=== PATIENT | female | born 1970 | race Caucasian/White ===

== ENCOUNTER 2016-11-23 07:51 | Day surgery (SDC) | payer BC ==
[~2016-11-23] VITALS: Ht 172.7 cm; Wt 117.9 kg
[~2016-11-23 07:51] MED LIST: ALEVE220 M1 PO; AZELASTINE0.1 %; AZURETTE PO; BACTRIM DS1 TAB PO; BIOTIN MAXI10000 MCG PO; BREO ELLIPTA 101 INH; CIPROFLOXACN500 MG PO; FLEXERIL5 M1 PO; FLONASE NASAL50 MCG; FLOVENT HFA110 MCG IN; LAMICTAL200 MG PO; LEVAQUIN500 MG PO; LEVOTHYROXIN150 MC1 PO; LORAZEPAM; MONTELUKAST SOD10 MG PO; NAPRELAN500 MG PO; PREDNISONE20 MG PO; PROAIR HFA IN; SILVADENE1 % TOP; SUMATRIPTAN SUC50 MG PO; SYNTHROID175 MCG PO; VITAMIN D2; WELLBUTRIN X1 PO; WELLBUTRIN150 M2 PO; ZESTRIL5 M1 PO; ZITHROMAX250 MG PO
[2016-11-23] MEDS ORDERED: VITAMIN D35000 UNI1 PO (08:20)
[2016-11-23 12:13] VITALS: BP 102/55
== END 2016-11-23 11:15 | disposition home or self-care (01) | DRG 394 ==
LOC: ENDO 07:51 → ORM 11:45
PROVIDERS: ATTEND Surgery
PROC: 0DJD8ZZ Inspection of Lower Intestinal Tract, Via Natural or Artificial Opening Endoscopic (ICD-10-PCS; principal; 2016-11-23)
DX: K64.1 Second degree hemorrhoids (principal); K62.5 Hemorrhage of anus and rectum; Q24.8 Other specified congenital malformations of heart; F33.8 Other recurrent depressive disorders; Z01.818 Encounter for other preprocedural examination; Z86.14 Personal history of Methicillin resistant Staphylococcus aureus infection; J45.909 Unspecified asthma, uncomplicated; E03.9 Hypothyroidism, unspecified; I10 Essential (primary) hypertension; Z72.89 Other problems related to lifestyle

== ENCOUNTER 2017-06-19 09:14 | Emergency (ER) | payer BC ==
[~2017-06-19] VITALS: Ht 172.7 cm; Wt 120.0 kg
[~2017-06-19 09:14] MED LIST changes: +VITAMIN D35000 UNI1 PO
[2017-06-19] MEDS ORDERED: DELTASONE20 MG PO (09:54)
[2017-06-19 10:05] VITALS: BP 138/77
== END 2017-06-19 10:05 | disposition home or self-care (01) | DRG 607 ==
LOC: ED 09:14
DX: L27.1 Localized skin eruption due to drugs and medicaments taken internally (principal); T36.8X5A Adverse effect of other systemic antibiotics, initial encounter; E03.9 Hypothyroidism, unspecified; F32.9 Major depressive disorder, single episode, unspecified; J45.909 Unspecified asthma, uncomplicated

== ENCOUNTER 2018-06-30 02:53 | Emergency (ER) | payer OTHER, BC ==
[~2018-06-30] VITALS: Ht 172.7 cm; Wt 114.0 kg
[~2018-06-30 02:53] MED LIST changes: +DELTASONE20 MG PO
[2018-06-30 04:09] VITALS: BP 145/96
== END 2018-06-30 04:15 | disposition home or self-care (01) | DRG 563 ==
LOC: ED 02:53
DX: S86.911A Strain of unspecified muscle(s) and tendon(s) at lower leg level, right leg, initial encounter (principal); S80.01XA Contusion of right knee, initial encounter; S50.311A Abrasion of right elbow, initial encounter; S60.416A Abrasion of right little finger, initial encounter; E03.9 Hypothyroidism, unspecified; W01.0XXA Fall on same level from slipping, tripping and stumbling without subsequent striking against object, initial encounter; Y92.219 Unspecified school as the place of occurrence of the external cause; Y99.0 Civilian activity done for income or pay

== ENCOUNTER 2020-05-26 11:10 | Emergency (ER) | payer BC ==
[~2020-05-26] VITALS: Ht 172.7 cm; Wt 115.9 kg
[2020-05-26 12:17] LABS: HEMATOCRIT 39.2 % (37.0-47.0); HEMOGLOBIN 12.6 g/dl (12.0-16.0); IMMATURE GRANULOCYTES 0.8 % (0.0-5.0); MEAN CELL VOLUME 86.5 fL CALC (80.0-100.0); MEAN CORPUSCULAR HGB 27.8 pG CALC (26.0-32.0); MEAN CORPUSCULAR HGB CONC 32.1 g/dL CAL (32.0-36.0); NEUT# 3.17 thou/uL (2.00-7.15); RED BLOOD COUNT 4.53 mill/uL (4.20-5.60); RED CELL DISTRI WIDTH 13.3 % (11.5-15.5)
[2020-05-26 12:23] LABS: ALBUMIN 3.9 g/dL (3.2-5.0); ALKALINE PHOSPHATASE 77 u/l (38-126); ANION GAP 12 (6-22 (CALC)); BILIRUBIN, TOTAL 0.7 mg/dL (0.0-1.4); BUN 7 mg/dL (7-17); BUN/CREATININE RATIO 13 (12-20 (CALC)); CARBON DIOXIDE 28 mmol/l (22-30); CHLORIDE 101 mmol/l (95-108); CREATININE 0.5 mg/dL (0.5-1.0); GFR > 60 ML/MIN (>=60 (CALC)); GFR FOR AFR.AMER. > 60 ML/MIN (>=60 (CALC)); POTASSIUM 3.7 mmol/l (3.5-5.1); SGOT/AST 42 u/l (14-36); SODIUM 137 mmol/l (137-146); TOTAL PROTEIN 7.2 g/dL (6.3-8.2)
[2020-05-26 12:35] LABS: MYOGLOBIN 92 ng/mL (0 - 62)
[2020-05-26] MEDS ORDERED: MIRALAX17 GM PO (14:13)
[2020-05-26] MEDS ORDERED: ZPAK PO (14:13)
[2020-05-26 14:18] VITALS: BP 136/78
== END 2020-05-26 14:28 | disposition home or self-care (01) | DRG 179 ==
LOC: ED 11:10
PROVIDERS: Emergency Medicine
DX: U07.1 COVID-19 (principal); K59.00 Constipation, unspecified; F41.9 Anxiety disorder, unspecified; J45.909 Unspecified asthma, uncomplicated; E03.9 Hypothyroidism, unspecified; F31.9 Bipolar disorder, unspecified

== ENCOUNTER 2023-12-13 11:06 | Observation (INO) | payer BC ==
[2023-12-13] VITALS (8 sets, daily range): BP systolic 111–145; BP diastolic 44–75
[~2023-12-13] VITALS: Ht 172.7 cm; Wt 97.8 kg
[~2023-12-13 11:06] MED LIST changes: +MIRALAX17 GM PO; +ZPAK PO
--- NOTE | 2023-12-13 11:15 | NUR ---
PT TO ROOM WITH STEADY GAIT
[2023-12-13 11:30] LABS: BASO% 0.2 % (0-3); EOS% 2.3 % (0-8); HEMATOCRIT 42.9 % (37.0-47.0); HEMOGLOBIN 14.3 g/dl (12.0-16.0); IMMATURE GRANULOCYTES 0.1 % (0.0-5.0); LYMPH% 18.5 % (15-41); MEAN CELL VOLUME 88.8 fL CALC (80.0-100.0); MEAN CORPUSCULAR HGB 29.6 pG CALC (26.0-32.0); MEAN CORPUSCULAR HGB CONC 33.3 g/dL CAL (32.0-36.0); NEUT# 6.48 thou/uL (2.00-7.15); NEUT% 71.9 % (42-76); RED BLOOD COUNT 4.83 mill/uL (4.20-5.60); RED CELL DISTRI WIDTH 13.7 % (11.5-15.5)
[2023-12-13 11:43] LABS: ALBUMIN 4.2 g/dL (3.2-5.0); BILIRUBIN, TOTAL 0.5 mg/dL (0.02-1.3); CREATININE 0.7 mg/dL (0.5-1.0); POTASSIUM 3.9 mmol/l (3.5-5.1); TOTAL PROTEIN 7.1 g/dL (6.3-8.2)
--- NOTE | 2023-12-13 13:14 | NUR ---
PATIENT AWAKE, ALERT AND STABLE. NO DISTRESS NOTED. FAMILY AT BEDSIDE. WILL CONTINUE TO MONITOR.
--- NOTE | 2023-12-13 14:00 | NUR ---
PATIENT AWAKE,ALERT AND STABLE. NO DISTRESS NOTED. PATIENT LAYING IN BED RESTING WITH AT BEDSIDE. VITALS WNL. WILL CONTINUE TO MONITOR.
[2023-12-13] MEDS ORDERED: SODIUM CHLORIDE 0.9% 1,000 ML IV ONE (15:00)
[2023-12-13] MEDS ORDERED: SODIUM CHLORIDE 0.9% 1,000 ML IV PRN (15:35)
[2023-12-13] MEDS ORDERED: MAGNESIUM HYDROXIDE 30 ML UDC PO PRN (15:35)
[2023-12-13] MEDS ORDERED: LEVOTHYROXIN125 MCG PO (15:35)
[2023-12-13] MEDS ORDERED: ACETAMINOPHEN 325 MG/TAB PO PRN (15:35)
[2023-12-13] MEDS ORDERED: ONDANSETRON HCl 4 MG/2 ML SDV IV PRN (15:35)
--- NOTE | 2023-12-13 18:37 | NUR ---
PT ARRIVED TO THE UNIT AOX4, WALKED TO THE BED INDEPENDENTLY, RESPIRATIONS ARE EVEN AND UNLABORED, LUNGS ARE CLEAR, BOWEL SOUNDS ARE HYPOACTIVE ON THE LEFT UPPER QUAD, AND ACTIVE IN THE LEFT LOWER AND RIGHT UPPER AND LOWER, PEDAL PULSES PALPABLE TO TOUCH.
--- NOTE | 2023-12-13 20:00 | NUR ---
RECEIVED REPORT FROM NURSE SAMAN, PATIENT RESTING IN BED, IN ROOM, PATINET ALERT ORIENTED AMBULATORY, DENIES PAIN AT THIS TIME, BUR SOMETIMES OCASSIONAL ABDOMINAL SPASM, PATIENT IV ON RFA G 20 NS AT 100CC/HR PATINET ON TELEMETRY, LUNG SOUNDS CLEAR, ABDOMEN, SOFT ACTIVE BOWEL SOUNDS, LBM 12/11, NOT IN DSITRESS, ADMISSION ASSESSMENT COMPLETED, PATINTE ORIENTED TO ROOM AND CALL LIGHT SYSTEM.
[2023-12-13] MEDS ORDERED: DICYCLOMINE HCL 10 MG/CAP PO PRN (20:55)
[2023-12-13] MEDS ORDERED: HYDROcodone 5 MG/Acetaminophen 325 MG/COMBO PO PRN (21:00)
--- NOTE | 2023-12-13 21:27 | NUR ---
py glucose was 98.
[2023-12-14] VITALS (10 sets, daily range): BP systolic 107–140; BP diastolic 44–85
--- NOTE | 2023-12-14 | NUR ---
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
--- NOTE | 2023-12-14 04:50 | NUR ---
patinet resting in bed, eyes closed, not in distress, breathing even unlabored call light in reached.
--- NOTE | 2023-12-14 05:51 | NUR ---
PATIENT CALLED HAD A BM BRIGHT RED BLOOD, UNABLE TO COLLECT SPECIMEN IT CONTAINS URINE.
[2023-12-14] MEDS ORDERED: LEVOTHYROXINE SODIUM 125 MCG/TAB PO SCH (06:00)
[2023-12-14 06:27] LABS: BASO% 0.3 % (0-3); EOS% 3.4 % (0-8); HEMATOCRIT 37.2 % (37.0-47.0); LYMPH% 27.2 % (15-41); MEAN CELL VOLUME 90.3 fL CALC (80.0-100.0); MEAN CORPUSCULAR HGB 29.6 pG CALC (26.0-32.0); MEAN CORPUSCULAR HGB CONC 32.8 g/dL CAL (32.0-36.0); MONO% 8.6 % (2-13); NEUT# 3.7 thou/uL (2.00-7.15); NEUT% 60.5 % (42-76); RED BLOOD COUNT 4.12 mill/uL (4.20-5.60); RED CELL DISTRI WIDTH 13.9 % (11.5-15.5)
[2023-12-14 06:44] LABS: HEMOGLOBIN 12.2 g/dl (12.0-16.0)
[2023-12-14 06:45] LABS: ALBUMIN 3.1 g/dL (3.2-5.0); BILIRUBIN, TOTAL 0.4 mg/dL (0.02-1.3); CREATININE 0.8 mg/dL (0.5-1.0); MAGNESIUM 2.1 mg/dL (1.6-2.3); POTASSIUM 3.6 mmol/l (3.5-5.1); TOTAL PROTEIN 5.5 g/dL (6.3-8.2)
--- NOTE | 2023-12-14 07:30 | NUR ---
Report received from shift mgr nurse. Patient is resting in bed, denies any pain. A&Ox4, on room air, NSR on tele monitor, IV fluids running as ordered, VS WNL. All needs addressed, call light within reach.
[2023-12-14] MEDS ORDERED: LISINOPRIL 5 MG/TAB PO SCH (09:00)
[2023-12-14] MEDS ORDERED: MONTELUKAST SODIUM 10 MG/TAB PO SCH (09:00)
--- NOTE | 2023-12-14 09:15 | NUR ---
Came to medicate patient, patient states that she took her meds from home already that she has at bedside. Extensive education provided at patient is not to take own meds.
[2023-12-14] MEDS ORDERED: lamoTRIgine 100 MG/TAB PO SCH (10:30)
[2023-12-14] MEDS ORDERED: buPROPion HCL 150 MG TAB SR PO SCH (10:30)
--- NOTE | 2023-12-14 12:00 | NUR ---
Patient is sitting in recliner chair eating lunch, denies any pain. A&Ox4, on room air, NSR on tele monitor, VS WNL, IV fluids running as ordered. All needs addressed, call light within reach.
--- NOTE | 2023-12-14 16:00 | NUR ---
Patient is resting in bed, denies any pain. A&Ox4, on room air, NSR on tele monitor, VS WNL, IV fluids running as ordered. Family at bedside. All needs addressed at this time, call light within reach.
[2023-12-14 18:19] LABS: HEMATOCRIT 41.4 % (37.0-47.0); HEMOGLOBIN 13.5 g/dl (12.0-16.0)
--- NOTE | 2023-12-14 20:00 | NUR ---
RECEIVED REPORT FROM NURSE FELIBERTO, PATIENT ALERT ORIENTED, ABLE TO MAKE NEEDS KNONW, ON SOFT DIET, REMAINS ON ISOLATION HX MRSA PENDING RESULT MRSA SWAB, PATIENT ONGOING IV ON RFA G 20 NS @ 100CC/HR INFUSING WELL, ON TELEMETRY. DENIES DISCOMFORTS AT THSI TIME, [employer] REPORTED BS 65, FOOD PROVIDED, WILL RECHECKED. PATIENT NOT IN DISTRESS, CALL LIGHT IN REACHED.
--- NOTE | 2023-12-14 21:21 | NUR ---
BS REPEATED 89
--- NOTE | 2023-12-14 23:52 | NUR ---
patient c/o hip pain, ps 7/10, prn lortab given.
[2023-12-15] VITALS: BP 140/75
[2023-12-15 04:00] VITALS: BP 110/67
--- NOTE | 2023-12-15 04:00 | NUR ---
PATIENT RESTING IN BED, EYES CLOSED, BREATHING EVEN UNLABORED NO DISCOMFORTS NOTED AT THIS TIME, CALL LIGHT WITHIN REACHED.
[2023-12-15 06:03] LABS: ALBUMIN 3.5 g/dL (3.2-5.0); BILIRUBIN, TOTAL 0.3 mg/dL (0.02-1.3); CREATININE 0.6 mg/dL (0.5-1.0); MAGNESIUM 2.1 mg/dL (1.6-2.3); POTASSIUM 3.8 mmol/l (3.5-5.1); TOTAL PROTEIN 6.1 g/dL (6.3-8.2)
[2023-12-15 06:04] LABS: BASO% 0.4 % (0-3); EOS% 2.2 % (0-8); HEMOGLOBIN 12.6 g/dl (12.0-16.0); IMMATURE GRANULOCYTES 0.1 % (0.0-5.0); MEAN CELL VOLUME 90.9 fL CALC (80.0-100.0); MEAN CORPUSCULAR HGB 30.1 pG CALC (26.0-32.0); MEAN CORPUSCULAR HGB CONC 33.2 g/dL CAL (32.0-36.0); MONO% 7.1 % (2-13); NEUT# 5.5 thou/uL (2.00-7.15); NEUT% 64.2 % (42-76); RED BLOOD COUNT 4.18 mill/uL (4.20-5.60); RED CELL DISTRI WIDTH 13.7 % (11.5-15.5)
[2023-12-15 07:08] VITALS: BP 130/73
--- NOTE | 2023-12-15 07:57 | NUR ---
SHIFT CHANGE REPORT, PT AWAKE ALERT AND ORIENTED SITTING UP IN BED, PLEASANTLY CONVERSANT AND STATES SHE FEELS MUCH BETTER, IVF INFUSING, TELE MONITOR IN PLACE, CALL VEGA IN REACH AND BED LOCKED IN LOWEST POSITION.
[2023-12-15] MEDS ORDERED: CIPROFLOXACN500 MG PO (09:21)
[2023-12-15] MEDS ORDERED: METRONIDAZOLE500 MG PO (09:22)
[2023-12-15 09:48] VITALS: BP 137/85
[2023-12-15 09:50] VITALS: BP 137/85
--- NOTE | 2023-12-15 11:07 | NUR ---
Discharge instructions given. Patient verbalizes understanding of same. Discharged in fair condition via Ambulatory to Home with spouse. All belongings sent with pt.
== END 2023-12-15 11:06 | disposition home or self-care (01) | DRG 386 ==
LOC: ED 11:06 → ED-I 14:30 → ED 14:59 → ED-I 15:00 → MS2 17:44
PROVIDERS: Family Medicine; Nurse Practitioner Family; ADMIT Internal Medicine; ATTEND Internal Medicine
DX: K50.111 Crohn's disease of large intestine with rectal bleeding (principal); Q89.3 Situs inversus; I10 Essential (primary) hypertension; E03.9 Hypothyroidism, unspecified; J45.909 Unspecified asthma, uncomplicated; F31.9 Bipolar disorder, unspecified; Z79.85 Long-term (current) use of injectable non-insulin antidiabetic drugs
CPT/HCPCS: G0378; Q9967

== ENCOUNTER 2024-02-28 07:00 | Day surgery (SDC) | payer BC ==
[~2024-02-28] VITALS: Ht 170.2 cm; Wt 88.5 kg
[~2024-02-28 07:00] MED LIST changes: +ADVAIR HFA; +ALEVE220 M2 PO; +ALLERGY RE50 MCG/ACT; +ATIVAN0.5 MG PO; +AZELASTINE HCL0.1 %; +LAMICTAL XR250 MG PO; +LEVOTHYROXIN125 MCG PO; +LEVOTHYROXIN150 MCG PO; +METRONIDAZOLE500 MG PO; +MOUNJARO15 M1; +OMEPRAZOLE DR40 MG PO
[2024-02-28] MEDS ORDERED: FAMOTIDINE 10MG/ML 2ML SDV IV ONE (07:04)
[2024-02-28] MEDS ORDERED: SODIUM CHLORIDE 0.9% 1,000 ML IV ONE (07:04)
[2024-02-28] MEDS ORDERED: STERILE WATER 3,000 ML IV ONE (07:08)
[2024-02-28 09:11] VITALS: BP 114/98
[2024-02-28] MEDS ORDERED: GLYCOPYRROLATE 0.2 MG/ML IV ONE (13:52)
[2024-02-28] MEDS ORDERED: PROPOFOL 200 MG/20 ML VIAL IV ONE (13:52)
[2024-02-28] MEDS ORDERED: LIDOCAINE HCL 2% 2ML SDV IV ONE (13:52)
== END 2024-02-28 09:12 | disposition home or self-care (01) | DRG 379 ==
LOC: ORM 07:00
PROVIDERS: ATTEND Surgery
PROC: 0DJD8ZZ Inspection of Lower Intestinal Tract, Via Natural or Artificial Opening Endoscopic (ICD-10-PCS; principal; 2024-02-28)
DX: K57.31 Diverticulosis of large intestine without perforation or abscess with bleeding (principal); K64.8 Other hemorrhoids